=== PATIENT | male | born 1970 | race Caucasian/White ===

== ENCOUNTER 2021-06-26 01:51 | Inpatient (IN) | payer BC, SELFPAY ==
[2021-06-26] VITALS (23 sets, daily range): BP systolic 99–157; BP diastolic 48–92; PULSE 60–83; RESP 16–20; TEMP 36.4–36.6; O2SAT 92–98; BMI 35.2; BMI 35.1
--- NOTE | 2021-06-26 | IR_ITS ---
APPROVED REPORT Patient Location: Inpatient PROCEDURES Left heart catheterization Left ventriculogram Selective coronary angiogram Drug-eluting stent deployment to the proximal LAD Intravascular ultrasound of the LAD INDICATION Acute non-ST elevation myocardial infarction, Coronary artery disease Informed consent was obtained prior to the procedure. COMPLICATIONS NONE Estimated Blood Loss: LESS THAN 10 ML TECHNIQUE One percent lidocaine used to anesthetize the right anterior aspect of the wrist. The right radial artery was accessed via the Seldinger technique. A 6 Hungarian sheath was placed in the right radial artery. 2.5 mg of verapamil, 800 mcg of nitroglycerin, 1mg Lidocaine and 5000 U Heparin were given through the arterial sheath. The papa catheter was also used to perform left heart catheterization, left ventriculogram and selective coronary angiogram. At the end the diagnostic angiogram therapeutic heparin was administered giving a therapeutic ACT and an EBU 3.75 guide catheter was placed in the left main artery followed by a Choice PT extra-support wire. A 4 mm x 12 mm resolute Godfrey stent was deployed at 18 lisa reducing the critical stenosis. A 5 mm x 8 mm balloon was then placed proximally and deployed at 18 lisa to post dilate. Intravascular ultrasound probe was then advanced which demonstrated good sizing of the distal aspect of the stent with slight undersizing in the proximal segment. A 5 mm x 8 mm balloon was then introduced back into the proximal and midportion of the stent and deployed at 20 and 22 lisa. Excellent angiographic results were obtained. GREGORY-3 flow was present before and after the procedure. At the end of the procedure the apparatus was removed the sheath was removed and hemostasis was achieved using TR banding patient was transferred to the postop putting in stable condition ANGIOGRAPHIC RESULTS The left main artery Normal The left anterior descending artery Has a critical proximal ruptured plaque with thrombus creating a 90% stenosis. Distally there are 20% smooth narrowings The circumflex artery Is a codominant vessel and gives rise to a large ramus intermedius which has mild 10% luminal irregularities. The circumflex artery also has 10% luminal irregularities The right coronary artery Codominant vessel with diffuse 10% luminal irregularities The LAWSON ventriculogram reveals Preserved ejection fraction of 55% with anterior wall mild hypokinesis The left ventricular end-diastolic pressure 10 mmHg IMPRESSION Critical proximal LAD disease as described above with successful stenting reducing the stenosis to 0% Preserved ejection fraction with mild regional wall motion abnormality Normal LVEDP PLAN 1. Dual antiplatelet therapy 2. LDL less than 55 to be achieved with high intensity statin 3. Cardiac rehabilitation 4. Avoidance of tobacco products 5. Risk factor modification Electronically signed by : Kalen Abdalla MD 06/26/2021 11:24:54
--- NOTE | 2021-06-26 02:00 | PC.NURSE ---
PT arrives from [facility] as a direct admit for Dr. Barry. Pt is a non-STEMI that Dr. Abdalla plans to take to the lab[facility] in the am. Pt arrives with 18G in the right AC, received report that pt had been given 180mg of Brilinta, 324mg of ASA and currently has 1/2 inch nitro paste on the right chest. Pt denies any chest pain at this time. Notified MD pt had arrived and was ready for admission orders. I started 20G in the left AC and covid swabbed patient, EKG obtained, V/S obtained and are as follows: 122/73, HR 70 sinus on the monitor, O2 sats 95% on room air, 98.8 oral temp. Pt clothing removed and placed in belongings bag, pt given gown and warm blankets. Pt has no other needs at this time. Call light provided.
--- NOTE | 2021-06-26 03:48 | ECG_ITS ---
APPROVED REPORT Exam: Resting ECG HR:72 bpm ECG Measurements Heart Rate 72 AXES GA 163 P 54 QRSd 107 QRS 81 QT 385 T 53 QTc 410 Conclusion SINUS RHYTHM NORMAL ECG UNCONFIRMED REPORT Electronically signed by : Vaughn Patel MD 06/26/2021 10:13:51
--- NOTE | 2021-06-26 03:57 | PC.NURSE ---
Pt pressure was noted @ 95/50. Went in and removed nitro paste from chest. Advised pt if he started having pain again to let me know PRATEEK. PT had no complaints. at bedside, call light within reach.
--- NOTE | 2021-06-26 04:50 | PC.NURSE ---
Spoke with about cath procedure, signed consent. Pt sleeping at this time. No other needs. Advised if she needed anything or pt woke up with pain to let us know. Call light within reach and instructed on how to use it. Provider with recliner, pillows and blankets.
--- NOTE | 2021-06-26 05:11 | PC.NURSE ---
I spoke with Mayra in lab who notified me troponin was 0.203. Repeated and Verified with lab. Notified
[2021-06-26 05:41] LABS: Alanine Aminotransferase 61 U/L (12-78); Albumin Level 3.9 g/dl (3.5-5.0); Albumin/Globulin Ratio 1.3 (1.1-1.8); Alkaline Phosphatase 83 U/L (38-126); Anion Gap 8.3 mEq/L (5-15); Aspartate Amino Transferase 46 U/L (17-59); Bilirubin,Total 0.5 mg/dl (0.2-1.3); Blood Urea Nitrogen 14 mg/dl (9-20); Calcium 9.1 mg/dl (8.4-10.2); Carbon Dioxide 28 mmol/L (22.0-30.0); Chloride 105 mmol/L (98-107); Creatinine Clearance Estimated 166 mL/min (50-200); Estimated Glomerular Filt Rate 90 ml/min (>60); GFR (African American) 109 ML/MIN (>60); Glucose 121 mg/dl (74-100); Potassium 4.3 mmoL/L (3.5-5.1); Sodium 137 mmol/L (136-145); Total Protein,Serum 6.9 g/dl (6.3-8.2)
[2021-06-26 05:42] LABS: Basophils # 0.3 K/mm3 (0-0.2); Basophils % 2.9 % (0.1-2.0); Eosinophils # 0.2 K/mm3 (0.0-0.4); Eosinophils % 1.7 % (0.1-12.0); Hematocrit 42.8 % (42.0-52.0); Hemoglobin 14.2 g/dL (14.1-18.0); Lymphocytes # 2.7 K/mm3 (0.7-4.5); Lymphocytes % 26.5 % (10-50); Mean Corpuscular HGB Conc 33.2 g/dL (31.8-35.4); Mean Corpuscular Hemoglobin 29.9 pg (27.0-31.2); Mean Corpuscular Volume 89.9 fl (80-94); Mean Platelet Volume 8.4 fl (7.4-10.4); Monocytes # 0.6 K/mm3 (0.1-1.0); Neutrophils # 6.5 K/mm3 (1.8-7.8); Neutrophils % 62.8 % (37.0-80.0); Platelet Count 274 K/mm3 (142-424); Red Blood Count 4.76 M/mm3 (4.60-6.20); Red Cell Distribution Width 14.1 % (11.5-17.5); White Blood Count 10.3 K/mm3 (4.8-10.8)
[2021-06-26 05:45] LABS: Coronavirus 19, PCR Not Detected (NotDetected); Influenza A, PCR Not Detected (NotDetected); Influenza B, PCR Not Detected (NotDetected)
--- NOTE | 2021-06-26 06:44 | PC.NURSE ---
CV lab at bedside performing echo
--- NOTE | 2021-06-26 06:50 | PC.NURSE ---
B/P-140/83 HR-76 O2 sats on room air- 99% Resp-20
--- NOTE | 2021-06-26 07:00 | CA_ITS ---
APPROVED REPORT EXAM: Comprehensive 2D, Doppler, and color-flow Echocardiogram Orthodontic Band Maker: Celeste Allen, RCS, RVS Ht: 5 ft 10 in Wt: 260lbs BSA: 2.33 BP: 122/73 mmHg Indications: NSTEMI, CP, smoker, COPD 2D Dimensions IVSd 1.25 cm LVEF (Visual) 55.00 % PWd 1.05 cm LA Volume 53.00 mL LVDd 5.08 cm LA Volume Index 22.253653 mL/m2 (M/F) 16-34 LVDs 3.19 cm Aortic Root 3.15 cm Left Atrium 4.22 cm LVOT 2.20 cm (M/F) 1.5-2.5 M-Mode Dimensions RVDd 3.81 cm (0.9-2.6) LA Diam 4.12 cm (1.9-4.0) LVDd 5.30 cm (3.5-5.7) Ao Diam 3.15 cm (2.0-3.7) LVDs 3.29 cm (3.5-5.7) IVSd 0.92 cm (0.6-1.1) PWd 0.96 cm (0.6-1.1) EF (Teich) 55.00% EPSs 0.12 cm FS 35.00% EDV (Teich) 135.30 mL TAPSE 1.79 (<1.7) ESV (Teich) 43.80 mL LV Diastology E Decel Time 223.00 (160-240 msec) E/A Ratio 1.40 MED E' 9.70 (< 7 cm/sec) MED A' 7.30 cm/s E'/MED E' Ratio 7.44 (>14) LAT E' 10.00 (<10 cm/sec) LAT A' 8.70 cm/s E/LAT E' Ratio 7.22 (>14) Aortic Valve LVOT Max 105.00 (70-110 cm/s) LVOT VTI 22.67 cm AoV Peak Torito. 114.00 (50-130 cm/s) AO Peak GR. 5.20 mmHg AO Mean GR. 2.60 (<5 mmHg) AO VTI 20.43 (18-25 cm) AWAIS (VTI) 4.22 (2.5-4.5 cm2) Mitral Valve MV A Velocity 52.00 (40-130 cm/s) E/A Ratio 1.40 MV Decel. Time 223.00 (160-240 ms) MV Mean Gr. 1.20 (<2mmHg) MV PHT 67.00 ms Pulmonary Valve PV Peak Velocity 84.00 (50-150 cm/s) Tricuspid Valve TR P. Velocity 166.00 cm/s RAP Estimate 10.00 mmHg RVSP 21.10 mmHg Left Ventricle Left atrium is mildly enlarged, left ventricle is normal size, there is no concentric left ventricular hypertrophy, estimated ejection fraction 50%, there is moderate hypokinesis involving the distal septum and apical wall. Diastolic parameters are within normal range. Right Ventricle Right atrium and right ventricle are normal size and contractility. Aortic Valve Aortic valve is minimally thickened and fibrosed there is no aortic stenosis or aortic insufficiency. Mitral Valve Mitral valve grossly normal, there is trace mitral regurgitation. Tricuspid Valve Tricuspid valve grossly normal, there is trace tricuspid regurgitation, tricuspid regurgitation jet velocity is inadequate for calculation of the right ventricular systolic pressure. Pulmonic Valve Pulmonic valve is poorly visualized. Great Vessels Aortic root is normal size. Inferior vena cava is poorly visualized. Pericardium No significant pericardial effusion noted. Conclusion 1. Normal left ventricular size, estimated ejection fraction 55% with segmental wall motion abnormalities described above, diastolic parameters are within normal range. 2. Trace mitral and tricuspid regurgitation. 3. No significant pericardial effusion. 4. Inferior vena cava is poorly visualized. Electronically signed by : Nigel Rizvi MD 06/27/2021 10:03:11
--- NOTE | 2021-06-26 07:27 | HMH.PHAVTE ---
[facility] Pharmacy VTE Monitoring - Patient Demographics Admission date: 06/26/21 Report Date: 06/26/21 Time: 07:27 Allergies/Adverse Reactions: Patient Allergies No Known Allergies Allergy (Verified 06/26/21 02:10) Height: 1.83 m Weight: 117.934 kg - VTE Risk Labs: VTE Related Lab Results Hgb 14.2 g/dL (14.1-18.0) 06/26/21 02:45 Hct 42.8 % (42.0-52.0) 06/26/21 02:45 Plt Count 274 K/mm3 (142-424) 06/26/21 02:45 BUN 14 mg/dl (9-20) 06/26/21 02:45 Creatinine 0.90 mg/dl (0.66-1.25) 06/26/21 02:45 Estimated Creat Clear 166 mL/min (50-200) 06/26/21 02:45 - Prophylaxis VTE Prophylaxis Ordered?: Yes Types of VTE Prophylaxis: TEDS Knee High Location of Applied Device: Bilateral Lower Extremeties
--- NOTE | 2021-06-26 07:50 | PC.NURSE ---
brie baez at BS
--- NOTE | 2021-06-26 08:00 | PC.NURSE ---
spoke with kusum carrasco in computer lab para professional states unsure of time of pt heart cath will be but states pt is last scheduled pt at this time.
--- NOTE | 2021-06-26 08:01 | HMH.CNCARD ---
History of Present Illness Consult date: 06/26/21 Requesting physician: Cheng Barry Consult reason: chest pain Chief complaint: NSTEMI Additional Medical History:: 1. Hypertension 2. Hyperlipidemia 3. History of hematuria status post cystoscopy with no evidence of cancer per patient 4. Family history of coronary artery disease in uncle, mother and grandfather History of present illness: 50-year-old white male with history of untreated hypertension and hyperlipidemia presented to [facility] for onset of chest pain last evening while at rest. The pain is described as substernal heaviness and pressure with radiation to the left arm. No nausea, vomiting or diaphoresis noted. No shortness of breath noted. Symptoms did not resolve after an hour and patient went to [facility] ER for evaluation. He was noted to have elevated troponins with no significant EKG changes. He was given aspirin along with nitroglycerin paste with resolution of symptoms. Transferred to [facility] for further treatment. Patient's had no further chest pain here at the [facility] but due to low blood pressure the Nitropaste was removed. He has been received Brilinta 180 mg. Patient relates similar discomfort approximately 5 years ago at which time he was seen at the [facility]. He was started on blood pressure and cholesterol medication and ultimately did have a stress test with no evidence of ischemia per the patient. He has not taken his blood pressure or cholesterol medication in the last couple of years. He does continue to smoke 1/2 to 1 pack/day. EKG shows sinus rhythm with no acute ST segment changes. Preliminary echocardiogram shows septal hypokinesis. [facility] History Medical History: Reports:: Hyperlipidemia, Hypertension *Have you ever received a pneumonia vaccine?: No *Have you received a flu vaccine this season?: No - *Social History Smoking Status: Current every day smoker Alcohol Intake: current *Occupational Status:: employed *Travel in the last 8 weeks: Inside the [place] Family Hx:: Coronary Artery Disease Meds Home Medications Medication Instructions Recorded Confirmed Type Aspirin [Aspirin 81mg chewable 81 mg PO DAILY 06/26/21 06/26/21 History tab] Allergies Allergy/AdvReac Type Severity Reaction Status Date / Time No Known Allergies Allergy Verified 06/26/21 02:10 Exam Vital signs and Labs for Last 24 Hours: Laboratory Results - last 24 hr 06/26/21 02:45: WBC 10.3, RBC 4.76, Hgb 14.2, Hct 42.8, MCV 89.9, MCH 29.9, MCHC 33.2, RDW 14.1, Plt Count 274, MPV 8.4, Neut % (Auto) 62.8, Lymph % (Auto) 26.5, [place] % (Auto) 6.0, Eos % (Auto) 1.7, Baso % (Auto) 2.9 H, Neut # (Auto) 6.5, Lymph # (Auto) 2.7, [place] # (Auto) 0.6, Eos # (Auto) 0.2, Baso # (Auto) 0.3 H 06/26/21 02:45: Sodium 137, Potassium 4.3, Chloride 105, Carbon Dioxide 28, Anion Gap 8.3, BUN 14, Creatinine 0.90, Estimated Creat Clear 166, Estimated GFR 90, Est GFR ( Amer) 109, Glucose 121 H, Calcium 9.1, Total Bilirubin 0.5, AST 46, ALT 61, Alkaline Phosphatase 83, Troponin I 0.20 H, Total Protein 6.9, Albumin 3.9, Globulin 3.0, Albumin/Globulin Ratio 1.3 06/26/21 02:45: SARS-CoV-2 (PCR) Not detected, Influenza A Untype (PCR) Not detected, Influenza Type B (PCR) Not detected I & O for Last 24 hours: Intake & Output 06/23/21 06/24/21 06/25/21 06/26/21 11:59 11:59 11:59 11:59 Weight 260 lb - Constitutional no acute distress - *Routine HEENT Exam Head: Present: normocephalic Eye: Present: EOMI, PERRL ENT: Present: mucous membranes moist - *Routine Neck Exam Present: supple. Absent: lymphadenopathy - *Routine Respiratory Exam Present: CTA bilaterally - *Routine Cardiovascular Exam Present: RRR - *Routine Abdominal Exam Present: soft, normoactive bowel sounds. Absent: tenderness - *Routine Extremities Exam Absent: cyanosis, clubbing, edema - *Routine Skin
--- NOTE | 2021-06-26 08:03 | PC.NURSE ---
briseida harris at
[2021-06-26 08:35] LABS: Chol/HDL Ratio 7.2 (1-3.5); Cholesterol 187 mg/dl (140-200); HDL Cholesterol 26 mg/dl (40-60); Triglycerides 349 mg/dl (30-150); VLDL Cholesterol 70 mg/dL (0-40)
[2021-06-26 08:36] LABS: Alanine Aminotransferase 66 U/L (12-78); Albumin Level 4.1 g/dl (3.5-5.0); Alkaline Phosphatase 82 U/L (38-126); Aspartate Amino Transferase 87 U/L (17-59); Bilirubin,Direct 0.9 mg/dl (0.0-0.4); Bilirubin,Indirect 0.4 mg/dL (0.0-0.9); Bilirubin,Total 1.3 mg/dl (0.2-1.3); Bilirubin,Unconjugated 0.4 mg/dL (0.0-1.1); Total Protein,Serum 7.6 g/dl (6.3-8.2)
[2021-06-26 08:46] LABS: Direct LDL Cholesterol 102.45 mg/dL (100-129)
[2021-06-26 08:53] LABS: Troponin I 0.19 ng/ml (0.00-0.034)
--- NOTE | 2021-06-26 09:48 | PC.NURSE ---
checked on pt at this time, he and significant other sleeping. will continue to monitor
--- NOTE | 2021-06-26 10:35 | PC.NURSE ---
pt to [facility] per wheelchair by kusum robledo prepped per kusum echols
[2021-06-26 14:36] LABS: CATHL Activated Clotting Time > 400 SEC (74-125)
--- NOTE | 2021-06-26 15:54 | HMH.HP ---
*Admission Date: 06/26/21 *Chief complaint: chest pain *History of present illness: 50-year-old male with history of untreated hypertension and hyperlipidemia presented to [facility] ED for onset of chest pain last evening while at rest. The pain is described as substernal heaviness and pressure with radiation to the left arm, which improved when walking but still there. Pt states after an hour the pain continued so he went to the . Work up at the ED showed elevated troponins with no significant EKG changes. after he was given aspirin and nitroglycerin paste symptoms went away. Pt was transferred to [facility] for further treatment and cardiology referral. While at [facility] he had no more chest pain and due to hypotension the nitro paste was removed. Pt states he has not taken his blood pressure or cholesterol medication in the last couple of years. He does smoke 1/2 to 1 pack/day. family hx of cardiac dz. Pt was admitted for further management and cardiology consult [facility] History I have reviewed the patient's past medical history: Yes Medical History: Reports:: Hyperlipidemia, Hypertension Denies:: Diabetes Mellitus Type 2 *Have you ever received a pneumonia vaccine?: No *Have you received a flu vaccine this season?: No - *Social History Smoking Status: Current every day smoker # Packs/Day (cigarettes): 1 Alcohol Intake: current Alcohol Intake Frequency:: holidays/special occasions only *Occupational Status:: employed *Travel in the last 8 weeks: Inside the [facility] Family Hx:: Coronary Artery Disease Review of Systems - Review of Systems Review of systems:: pertinent systems reviewed and negative unless documented below - Constitutional Denies body ache(s), Denies fatigue - Eyes Denies discharge, Denies requires corrective lenses - ENT Denies bleeding gums - *Cardiovascular Reports chest pain, Reports chest pain at rest, Reports shortness of breath with activity - *Respiratory Reports shortness of breath, Denies cough - *Gastrointestinal Denies loose stools - *Genitourinary Denies urinary hesitancy - *Musculoskeletal Denies muscle weakness - Integumentary/Breasts Denies rash - *Neurologic Denies seizure-like activity - Psychiatric Denies abnormal sleep pattern - Endocrine Denies excessive sweating - Hematologic/Lymphatic Denies easy bruising Meds Home Medications Medication Instructions Recorded Confirmed Type Aspirin [Aspirin 81mg chewable 81 mg PO DAILY 06/26/21 06/26/21 History tab] Allergies Allergy/AdvReac Type Severity Reaction Status Date / Time No Known Allergies Allergy Verified 06/26/21 02:10 Exam Vital signs and Labs for Last 24 Hours: Temp Pulse Resp BP Pulse Ox 97.9 F 70 18 120/66 97 06/26/21 12:15 06/26/21 15:00 06/26/21 15:00 06/26/21 15:00 06/26/21 15:00 Laboratory Results - last 24 hr 06/26/21 02:45: WBC 10.3, RBC 4.76, Hgb 14.2, Hct 42.8, MCV 89.9, MCH 29.9, MCHC 33.2, RDW 14.1, Plt Count 274, MPV 8.4, Neut % (Auto) 62.8, Lymph % (Auto) 26.5, [place] % (Auto) 6.0, Eos % (Auto) 1.7, Baso % (Auto) 2.9 H, Neut # (Auto) 6.5, Lymph # (Auto) 2.7, [place] # (Auto) 0.6, Eos # (Auto) 0.2, Baso # (Auto) 0.3 H 06/26/21 02:45: Sodium 137, Potassium 4.3, Chloride 105, Carbon Dioxide 28, Anion Gap 8.3, BUN 14, Creatinine 0.90, Estimated Creat Clear 166, Estimated GFR 90, Est GFR ( Amer) 109, Glucose 121 H, Calcium 9.1, Total Bilirubin 0.5, AST 46, ALT 61, Alkaline Phosphatase 83, Troponin I 0.20 H, Total Protein 6.9, Albumin 3.9, Globulin 3.0, Albumin/Globulin Ratio 1.3 06/26/21 02:45: SARS-CoV-2 (PCR) Not detected, Influenza A Untype (PCR) Not detected, Influenza Type B (PCR) Not detected 06/26/21 02:45: Triglycerides 349 H, Cholesterol 187, LDL Cholesterol Direct 102.45, VLDL Cholesterol 70 H, HDL Cholesterol 26 L, Cholesterol/HDL Ratio 7.2 H 06/26/21 02:45: Total Bilirubin 1.3, Direct Bilirubin 0.9 H, Conjugated Robin
[2021-06-27] VITALS: BP 141/78; PULSE 70; PULSE 86; RESP 18; TEMP 36.5; O2SAT 94
[2021-06-27 04:00] VITALS: PULSE 80
--- NOTE | 2021-06-27 04:10 | PC.NURSE ---
Addendum entered by Tanvi Burch RN 06/27/21 04:17: telemetry has shown NSR t/o shift Original Note: pt has rested well t/o shift, has not complained of chest pain or SOA, right radial cath site with dressing in place, C/D/I, HR 72-86, SBP 135-146, ambulating independently to BR
[2021-06-27 04:38] VITALS: BP 135/86; PULSE 79; RESP 14; TEMP 36.4; O2SAT 95
[2021-06-27 05:02] VITALS: BMI 35.9
[2021-06-27 06:44] LABS: Basophils # 0.1 K/mm3 (0-0.2); Basophils % 1.1 % (0.1-2.0); Eosinophils # 0.2 K/mm3 (0.0-0.4); Eosinophils % 1.9 % (0.1-12.0); Hematocrit 43.1 % (42.0-52.0); Lymphocytes # 2.5 K/mm3 (0.7-4.5); Lymphocytes % 24.9 % (10-50); Mean Corpuscular HGB Conc 34.7 g/dL (31.8-35.4); Mean Corpuscular Hemoglobin 30.9 pg (27.0-31.2); Mean Corpuscular Volume 89.1 fl (80-94); Mean Platelet Volume 8.1 fl (7.4-10.4); Monocytes # 0.6 K/mm3 (0.1-1.0); Monocytes % 5.7 % (1.7-9.3); Neutrophils # 6.8 K/mm3 (1.8-7.8); Neutrophils % 66.4 % (37.0-80.0); Platelet Count 261 K/mm3 (142-424); Red Blood Count 4.84 M/mm3 (4.60-6.20); Red Cell Distribution Width 14.1 % (11.5-17.5); White Blood Count 10.2 K/mm3 (4.8-10.8)
[2021-06-27 07:03] LABS: Anion Gap 9.9 mEq/L (5-15); Blood Urea Nitrogen 11 mg/dl (9-20); Calcium 8.8 mg/dl (8.4-10.2); Carbon Dioxide 27 mmol/L (22.0-30.0); Chloride 105 mmol/L (98-107); Creatinine Clearance Estimated 190 mL/min (50-200); Estimated Glomerular Filt Rate 103 ml/min (>60); GFR (African American) 124 ML/MIN (>60); Glucose 124 mg/dl (74-100); Potassium 3.9 mmoL/L (3.5-5.1); Sodium 138 mmol/L (136-145)
--- NOTE | 2021-06-27 07:10 | HMH.PNCARD ---
Subjective Date: 06/27/21 Time: 07:10 Principal diagnosis: NSTEMI Interval history: 50-year-old white male at bedside eating breakfast in no acute distress. Denies any chest pain, pressure or tightness overnight. Blood pressure controlled Results of left heart cath and stenting reviewed with patient and . All questions answered. Exam Vital signs and Labs for Last 24 Hours: Temp Pulse Resp BP Pulse Ox 97.5 F L 79 14 135/86 95 06/27/21 04:38 06/27/21 04:38 06/27/21 04:38 06/27/21 04:38 06/27/21 04:38 Laboratory Results - last 24 hr 06/26/21 02:45: Triglycerides 349 H, Cholesterol 187, LDL Cholesterol Direct 102.45, VLDL Cholesterol 70 H, HDL Cholesterol 26 L, Cholesterol/HDL Ratio 7.2 H 06/26/21 02:45: Total Bilirubin 1.3, Direct Bilirubin 0.9 H, Conjugated Bilirubin 0.0, Indirect Bilirubin 0.4, Unconjugated Bilirubin 0.4, AST 87 H D, ALT 66, Alkaline Phosphatase 82, Total Protein 7.6, Albumin 4.1 06/26/21 07:20: Troponin I 0.19 H 06/26/21 11:01: Activated Clotting Time > 400 H* 06/27/21 06:20: WBC 10.2, RBC 4.84, Hgb 15.0, Hct 43.1, MCV 89.1, MCH 30.9, MCHC 34.7, RDW 14.1, Plt Count 261, MPV 8.1, Neut % (Auto) 66.4, Lymph % (Auto) 24.9, [place] % (Auto) 5.7, Eos % (Auto) 1.9, Baso % (Auto) 1.1, Neut # (Auto) 6.8, Lymph # (Auto) 2.5, [place] # (Auto) 0.6, Eos # (Auto) 0.2, Baso # (Auto) 0.1 06/27/21 06:20: Sodium 138, Potassium 3.9, Chloride 105, Carbon Dioxide 27, Anion Gap 9.9, BUN 11, Creatinine 0.80, Estimated Creat Clear 190, Estimated GFR 103, Est GFR ( Amer) 124, Glucose 124 H, Calcium 8.8 I & O for Last 24 hours: Intake & Output 05/03/22 05/04/22 05/05/22 05/06/22 11:59 11:59 11:59 11:59 Intake Total 720 / 720 Balance 720 / 720 Weight 260 lb 265 lb 6.4 oz - *Routine Respiratory Exam Present: CTA bilaterally - *Routine Cardiovascular Exam Present: RRR Progress Note: A&P (1) NSTEMI (non-ST elevated myocardial infarction) Status: Acute (2) Hypertension Status: Acute (3) Hyperlipidemia Status: Acute Assessment and Plan for All Diagnoses:: 1. Non-ST elevation RI with subsequent drug-eluting stent placement to proximal LAD. Remaining arteries have 10% stenoses. Continue aspirin and Brilinta. 2. Hypertension, tolerating lisinopril and metoprolol. 3. Hyperlipidemia, atorvastatin started. 4. Smoking cessation encouraged Patient stable from a cardiac standpoint for discharge. Home medication recommendations Aspirin 81 mg daily Brilinta 90 mg twice daily Atorvastatin 40 mg daily Lisinopril 5 mg daily Metoprolol succinate XL 25 mg nightly Off work until follow-up next week.
[2021-06-27 07:37] VITALS: BP 142/85; PULSE 83; RESP 18; TEMP 36.8; O2SAT 95
[2021-06-27 08:00] VITALS: PULSE 81; O2SAT 98
--- NOTE | 2021-06-27 09:02 | HMH.DCSUM ---
General - General Admission date:: 06/26/21 Discharge date: 06/27/21 HPI HPI: 50-year-old male with history of untreated hypertension and hyperlipidemia presented to [facility] ED for onset of chest pain last evening while at rest. The pain is described as substernal heaviness and pressure with radiation to the left arm, which improved when walking but still there. Pt states after an hour the pain continued so he went to the . Work up at the ED showed elevated troponins with no significant EKG changes. after he was given aspirin and nitroglycerin paste symptoms went away. Pt was transferred to [facility] for further treatment and cardiology referral. While at [facility] he had no more chest pain and due to hypotension the nitro paste was removed. Pt states he has not taken his blood pressure or cholesterol medication in the last couple of years. He does smoke 1/2 to 1 pack/day. family hx of cardiac dz. Pt was admitted for further management and cardiology consult Hospital Course Hospital Course: Abnormal Lab Results 06/26/21 11:01: Activated Clotting Time > 400 H* 06/27/21 06:20: Glucose 124 H cardiology consult Assessment and Plan for All Diagnoses:: 1. Non-ST elevation UT with subsequent drug-eluting stent placement to proximal LAD. Remaining arteries have 10% stenoses. Continue aspirin and Brilinta. 2. Hypertension, tolerating lisinopril and metoprolol. 3. Hyperlipidemia, atorvastatin started. 4. Smoking cessation encouraged Patient stable from a cardiac standpoint for discharge. Home medication recommendations Aspirin 81 mg daily Brilinta 90 mg twice daily Atorvastatin 40 mg daily Lisinopril 5 mg daily Metoprolol succinate XL 25 mg nightly Discharge Plan (1) NSTEMI (non-ST elevated myocardial infarction)- cath report:Critical proximal LAD disease as described above with successful stenting reducing the stenosis to 0%Preserved ejection fraction with mild regional wall motion abnormality. Normal LVEDP . Continue aspirin and Brilinta. encouraged to stop smoking (2) Hypertension-lisinopril and metoprolol (3) Hyperlipidemia-atorvastatin started. Objective Vital signs: Temp Pulse Resp BP Pulse Ox 98.2 F 83 18 142/85 H 95 06/27/21 07:37 06/27/21 07:37 06/27/21 07:37 06/27/21 07:37 06/27/21 07:37 no acute distress - *Routine HEENT Exam Head: Present: normocephalic Eye: Present: PERRL ENT: Present: mucous membranes moist - *Routine Neck Exam Present: supple - *Routine Respiratory Exam Present: CTA bilaterally - *Routine Cardiovascular Exam Present: RRR - *Routine Abdominal Exam Present: soft, normoactive bowel sounds. Absent: tenderness - *Routine Extremities Exam Absent: cyanosis, clubbing, edema - *Routine Skin Exam Present: warm. Absent: rash - Detailed Eye Exam Eyelids: Bilateral normal inspection Results Labs on day of discharge: Labs from last 24 hours 06/27/21 06/27/21 06/26/21 06:20 06:20 11:01 WBC 10.2 RBC 4.84 Hgb 15.0 Hct 43.1 MCV 89.1 MCH 30.9 MCHC 34.7 RDW 14.1 Plt Count 261 MPV 8.1 Neut % (Auto) 66.4 Lymph % (Auto) 24.9 [place] % (Auto) 5.7 Eos % (Auto) 1.9 Baso % (Auto) 1.1 Neut # (Auto) 6.8 Lymph # (Auto) 2.5 [place] # (Auto) 0.6 Eos # (Auto) 0.2 Baso # (Auto) 0.1 Activated Clotting Time > 400 H* Sodium 138 Potassium 3.9 Chloride 105 Carbon Dioxide 27 Anion Gap 9.9 BUN 11 Creatinine 0.80 Estimated Creat Clear 190 Estimated GFR 103 Est GFR ( Amer) 124 Glucose 124 H Calcium 8.8 - Additional Comments rounded with dr johnson all orders per dr johnson DS: Diagnosis - Discharge Diagnosis (1) NSTEMI (non-ST elevated myocardial infarction) Status: Acute (2) Hypertension Status: Acute (3) Hyperlipidemia Status: Acute Discharge Plan - Patient Dischar
--- NOTE | 2021-06-27 09:41 | [facility].PHACLD ---
Fredy Paris has received discharge medication counseling on the following medications: -ASPIRIN (BLEED/BRUISING RISK, SIGNS/SYMPTOMS OF BLEEDING, IF YOU BUMP HEAD BE SEEN) -BRILINTA (BLEED/BRUISING RISK, SIGNS/SYMPTOMS OF BLEEDING, IF YOU BUMP HEAD BE SEEN) -ATORVASTATIN (TAKE AT BEDTIME, WATCH FOR MUSCLE PAIN, IF THIS OCCURS TALK TO MD). -METOPROLOL (WATCH FOR DIZZINESS, LIGHTHEADEDNESS, HEADACHE) -LISINOPRIL (WATCH FOR DIZZINESS, LIGHTHEADEDNESS, HEADACHE)
--- NOTE | 2021-07-02 12:49 | CARE MANAGER ---
Attempted to contact patient x3 regarding follow up from hospital discharge. Unable to reach patient. LEEANN Honeycutt
== END 2021-06-27 10:36 | disposition home or self-care (01) | DRG 247 ==
PROVIDERS: Internal Medicine; Physician Assistant; Admitting Provider Emergency Medicine; PCP Pediatrics; Visit Provider Emergency Medicine
PROC: 027034Z Dilation of Coronary Artery, One Artery with Drug-eluting Intraluminal Device, Percutaneous Approach (ICD-10-PCS; principal; 2021-06-26 12:30)
DX: I21.4 Non-ST elevation (NSTEMI) myocardial infarction (principal); F17.210 Nicotine dependence, cigarettes, uncomplicated; I10 Essential (primary) hypertension; E78.5 Hyperlipidemia, unspecified; I25.10 Atherosclerotic heart disease of native coronary artery without angina pectoris; Z71.6 Tobacco abuse counseling; Z20.822 Contact with and (suspected) exposure to COVID-19
CPT/HCPCS: 36415; 80048; 80053; 80061; 80076; 84484; 85025; 85347; 92941; 92978; 93005; 93306; 93458; 99152; 99153; C1725; C1760; C1769; C1876; C9606; C9803; J1644; Q9967; U0003; U0005

== ENCOUNTER 2021-07-10 14:31 | Outpatient (RCR) | payer BC, SELFPAY | END 2021-08-29 15:30 | disposition home or self-care (01) | LOC: PT 14:31 | PROVIDERS: Visit Provider Internal Medicine | DX: I25.10 Atherosclerotic heart disease of native coronary artery without angina pectoris (principal); Z95.5 Presence of coronary angioplasty implant and graft | CPT/HCPCS: 93798 ==